=== PATIENT | female | born 2000 | race American Indian/Alaskan Native ===

== ENCOUNTER 2022-01-07 10:16 | Inpatient (IN) | payer SELFPAY ==
--- NOTE | 2022-01-07 13:16 | Ultrasound Report ---
US OB BPP wo non-stress, US OB follow up INDICATION / CLINICAL INFORMATION: vinh. Clinical Gestational Age (GA) in weeks, days: 40 weeks 2 days TECHNIQUE: Transabdominal. COMPARISON: None available. FINDINGS: NUMBER: Single PRESENTATION: cephalic PLACENTA: Fundal, left lateral placenta is free of the os. MATERNAL ADNEXA: No significant abnormality. AMNIOTIC FLUID VOLUME: normal AMNIOTIC FLUID INDEX (VINH) in cm (if measured): 10.2 BREATHING MOVEMENT = 0 GROSS BODY MOVEMENT = 2 TONE = 2 QUALITATIVE AMNIOTIC FLUID VOLUME = 2 TOTAL BIOPHYSICAL SCORE = 8/8 MEASUREMENTS: - Biparietal Diameter = 8.7 cm = 35 weeks 0 days - Head Circumference = 31.1 cm = 34 weeks 5 days - Abdominal Circumference = 34.5 cm = 38 weeks 2 days - Femur Length = 7.4 cm = 38 weeks 0 days - Estimated Weight (in grams, if calculated): 3192 - Heart Rate (beats per minute): 137 ADDITIONAL FINDINGS: None. AVERAGE ULTRASOUND AGE (AUA) in weeks, days = 36 weeks 4 days IMPRESSION: 1. Biophysical profile of 8 due to limited breathing movements. Close follow-up is suggested. 2. Single live intrauterine with ultrasound age of 36 weeks 4 days. Estimate weight o f 3192 g. 3. No other significant abnormality. Signer Name: Steven Christianson MD Signed: 01/07/2022 1:11 PM Workstation Name: [employer]
[2022-01-07] MEDS ORDERED: NalbUPHINE 10 MG/1 ML INJ IV PRN (14:20)
[2022-01-07] MEDS ORDERED: CARBOPROST TROMETHAMINE 250 MCG/1 ML INJ IM PRN (14:20)
[2022-01-07] MEDS ORDERED: ONDANSETRON 4 MG/2 ML INJ IV PRN (14:20)
[2022-01-07] MEDS ORDERED: LIDOCAINE (2%) 20 MG/1 ML VIAL 20 ML MDV INFILTRATI ONE (14:20)
[2022-01-07] MEDS ORDERED: PROMETHAZINE 25 MG TAB PO PRN (14:20)
[2022-01-07] MEDS ORDERED: TERBUTALINE 1 MG/1 ML INJ SUB-Q PRN (14:20)
[2022-01-07] MEDS ORDERED: METHYLERGONOVINE MALEATE 0.2 MG/ML VIAL IM PRN (14:20)
[2022-01-07] MEDS ORDERED: ePHEDrine SULFATE 50 MG/1 ML INJ IV PRN (14:20)
[2022-01-07] MEDS ORDERED: OXYTOCIN 10 UNIT/1 ML INJ IM PRN (14:20)
[2022-01-07] MEDS ORDERED: MINERAL OIL 30 ML ORAL LIQD PO PRN (14:20)
[2022-01-07] MEDS ORDERED: ACETAMINOPHEN 325 MG TAB PO PRN (14:20)
[2022-01-07] MEDS ORDERED: PENICILLIN G POTASSIUM 5 MIL.UNITS in SODIUM CHLORIDE 0.9% 50 ML IV ONE (14:20)
[2022-01-07] MEDS ORDERED: miSOPROStol 200 MCG TAB PR PRN (14:20)
[2022-01-07] MEDS ORDERED: LOPERAMIDE 2 MG CAP PO PRN (14:20)
[2022-01-07] MEDS ORDERED: LACTATED RINGERS 1,000 ML IV SCH (14:30)
--- NOTE | 2022-01-07 14:31 | History and Physical Report ---
History of Present Illness Date of examination: 01/07/22 Date of admission: 01/07/22 Chief complaint: LOF at 10am this morning History of present illness: at 40.2wks by LMP per pt report. Pt does not have care here. Pt admits to LOF at 10am today, denies fever or chills, admits to movement and sometimes intermittent cramping. Pt denies headache. pt states she was suppose to deliver at [facility]. pt cannot recall getting GBS done. Past History Past Medical History: no pertinent history Past Surgical History: no surgical history Family/Genetic History: none Social history: no significant social history - Obstetrical History Expected Date of Delivery: 01/05/22 Actual Gestation: 40 Week(s) 2 Day(s) : 3 Hx # Term Pregnancies: 1 Spontaneous Abortions: 1 Number of Living Children: 1 Medications and Allergies Allergies Allergy/AdvReac Type Severity Reaction Status Date / Time No Known Allergies Allergy Unverified 01/07/22 10:33 Active Meds: Active Medications Acetaminophen (Acetaminophen 325 Mg Tab) 650 mg PO Q4H PRN PRN Reason: Pain, Mild (1-3) Carboprost Tromethamine (Carboprost Tromethamine 250 Mcg/1 Ml Inj) 250 mcg IM ONCE PRN PRN Reason: Uterine Bleeding Ephedrine Sulfate (Ephedrine Sulfate 50 Mg/1 Ml Inj) 10 mg IV Q2M PRN PRN Reason: Hypotension Fentanyl (Fentanyl 100 Mcg/2 Ml Inj) 100 mcg IV Q2H PRN PRN Reason: Pain,Severe (7-10) LABOR PAIN Oxytocin/Sodium Chloride (Pitocin/Ns 30 Unit/500ml) 30 units in 500 mls @ 2 mls/hr IV TITR ALEXANDRE; Protocol Lactated Ringer's (Lactated Ringers) 1,000 mls @ 125 mls/hr IV DIRECT ALEXANDRE Oxytocin/Sodium Chloride (Pitocin/Ns 30 Unit/500ml) 30 units in 500 mls @ 40 mls/hr IV TITR ALEXANDRE; Protocol Penicillin G Potassium 5 mil. (units/ Sodium Chloride) 50 mls @ 100 mls/hr IV ONCE ONE; Protocol Stop: 01/07/22 14:49 Lidocaine (Lidocaine (2%) 20 Mg/1 Ml Vial 20 Ml Mdv) 20 ml INFILTRATI ONCE ONE Stop: 07/18/22 14:21 Loperamide HCl (Loperamide 2 Mg Cap) 2 mg PO ONCE PRN PRN Reason: give with Hemabate Methylergonovine Maleate (Methylergonovine Maleate 0.2 Mg/Ml Vial) 0.2 mg IM ONCE PRN PRN Reason: Uterine Bleeding Mineral Oil (Mineral Oil 30 Ml Oral Liqd) 30 ml PO QHS PRN PRN Reason: Constipation Misoprostol (Misoprostol 200 Mcg Tab) 800 mcg MO ONCE PRN PRN Reason: Uterine Bleeding Nalbuphine HCl (Nalbuphine 10 Mg/1 Ml Inj) 10 mg IV Q2H PRN PRN Reason: Pain, Moderate (4-6) Ondansetron HCl (Ondansetron 4 Mg/2 Ml Inj) 4 mg IV Q8H PRN PRN Reason: Nausea And Vomiting Oxytocin (Oxytocin 10 Unit/1 Ml Inj) 10 unit IM ONCE PRN PRN Reason: Uterine Bleeding Promethazine HCl (Promethazine 25 Mg Tab) 25 mg PO Q6H PRN PRN Reason: Nausea And Vomiting Terbutaline Sulfate (Terbutaline 1 Mg/1 Ml Inj) 0.25 mg SUB-Q ONCE PRN PRN Reason: Hyperstimulation/Hypertonicity Review of Systems All systems: negative (LOF) - Vital Signs Vital signs: Vital Signs Temp Pulse Resp BP Pulse Ox 97.9 F 100 H 20 105/63 98 01/07/22 10:19 01/07/22 10:19 01/07/22 10:19 01/07/22 10:19 01/07/22 10:19 Temp Pulse Resp BP Pulse Ox 97.9 F 101 H 20 129/69 97 01/07/22 10:19 01/07/22 14:22 01/07/22 10:19 01/07/22 12:35 01/07/22 14:22 - Physical Exam Breasts: Positive: deferred Cardiovascular: Regular rate Lungs: Positive: Normal air movement Abdomen: Positive: soft Genitourinary (Female): Positive: normal external genitalia Uterus: Positive: enlarged (non-tender gravid) Extremities: Positive: normal Deep Tendon Reflex Grade: Normal +2 - Obstetrical FHR: category 1 Cervical Dilatation: 4 (SSE with mec fluid seen) Cervical Effacement Percentage: 50 station: -1 Uterine Contraction Pattern: Irregular Uterine Contraction Intensity: Mild Results All other labs normal. Assessment and Plan Term , post dates with PROM seen with neg ROM plus and VINH 10cm, meconium stained fluid from cervical os, mild contractions in early labor, GBS unknown, unclear where pt has care 1. Will admit and augment labor with pitocin with meconium seen and term fundus 2. GBS prophylaxis with PCN 3. Walk in labs and try and obtain records 4. May have epidural when desired 5. Plan of care discussed with pt and shared decision making done with all risks, benefits and alternatives verbalized. Pt agrees
[2022-01-07] MEDS ORDERED: OXYTOCIN DRIP 30 UNITS/500 ML BAG IV SCH ×2 (15:00)
[2022-01-07] MEDS ORDERED: hydrALAZINE 20 MG/1 ML INJ ONE (17:09)
[2022-01-07 17:52] LABS: Hematocrit 35.6 % (30.3-42.9); Hemoglobin 11.5 gm/dl (10.1-14.3); Mean Corpuscular HGB Conc 32 % (30-34); Mean Corpuscular Volume 78 fl (79-97); Platelet Count 359 K/mm3 (140-440); Red Blood Count 4.54 M/mm3 (3.65-5.03); Red Cell Distribution Width 18.2 % (13.2-15.2)
[2022-01-07] MEDS ORDERED: hydrALAZINE 20 MG/1 ML INJ IV ONE (19:54)
[2022-01-07] MEDS: fentaNYL 100 MCG/2 ML INJ IV PRN ×2 (21:16→23:38)
[2022-01-08] MEDS ORDERED: LIDOCAINE (2%) 20 MG/1 ML VIAL 20 ML MDV INFILTRATI ONE (01:03)
[2022-01-08] MEDS ORDERED: HYDROcodone/ACETAMINOPHEN 5-325 MG TAB PO PRN (01:31)
[2022-01-08] MEDS ORDERED: BENZOCAINE/MENTHOL 20/0.5% TOP SPRAY 56 GM TP PRN (01:31)
[2022-01-08] MEDS ORDERED: ACETAMINOPHEN 325 MG TAB PO PRN (01:31)
[2022-01-08] MEDS ORDERED: WITCH HAZEL/ GLYCERIN PAD TP PRN (01:31)
[2022-01-08] MEDS ORDERED: MAGNESIUM HYDROXIDE (MOM) ORAL LIQD UDC PO PRN (01:31)
[2022-01-08] MEDS ORDERED: LANOLIN/ZINC/DIMETHICONE (LANSINOH) 7 GM TP PRN (01:31)
--- NOTE | 2022-01-08 01:38 | Procedure Note ---
OB Delivery Note - Delivery Date of Delivery: 01/08/22 Surgeon: JF ELLIS Estimated blood loss: 100cc - Vaginal Delivery presentation: vertex Delivery position: OA Intrapartum events: PROM->1hr before delivery Delivery induction: oxytocin Delivery augmentation: pitocin Delivery monitor: external FHT, external uterine Route of delivery: Indicators for instrumentation: nonreassuring FHR tracing Delivery placenta: spontaneous Delivery cord: 3 umbilical vessels Episiotomy: none Delivery laceration: 1st degree Delivery repair: vicryl Anesthesia: local Delivery comments: The patient was admitted to labor and delivery with premature rupture membranes at term. Labor was induced. The patient presented a liveborn female infant. The 's umbilical cord was clamped and cut. She was handed off to the nursery team. The placenta spontaneously extracted. There was a first-degree perineal laceration that was repaired with 3-0 Vicryl in a running fashion. The patient tolerated the procedure well. All instruments were removed from the patient's vagina. - Infant A at 1 minute: 8 at 5 minutes: 9 Infant Gender: Female
[2022-01-08] MEDS: IBUPROFEN 800 MG TAB PO SCH (02:22)
[2022-01-08 05:33] LABS: Hepatitis C Virus Antibody Non-Reactive (NonReactive)
--- NOTE | 2022-01-08 12:51 | Event Note ---
Date: 01/08/22 Just peaked in to see pt and she is doing fine. pt feels tired as expected having baby today. Firm fundus and lochia moderate. Pt denies pelvic pain. Will continue routine postpatum care. All questions encouraged and answered.
[2022-01-08] MEDS: DOCUSATE SODIUM 100 MG CAP PO SCH (17:21)
[2022-01-08] MEDS: PRENATAL VIT27-FE FUMARATE-FOLIC ACID VIT TAB PO SCH (17:21)
[2022-01-09] MEDS: DOCUSATE SODIUM 100 MG CAP PO SCH ×4 (00:12→21:31)
[2022-01-09] MEDS: IBUPROFEN 800 MG TAB PO SCH ×4 (00:12→17:32)
[2022-01-09 07:55] LABS: Hematocrit 33.6 % (30.3-42.9); Hemoglobin 10.6 gm/dl (10.1-14.3); Mean Corpuscular HGB Conc 32 % (30-34); Mean Corpuscular Volume 80 fl (79-97); Platelet Count 326 K/mm3 (140-440); Red Blood Count 4.23 M/mm3 (3.65-5.03)
[2022-01-09] MEDS: PRENATAL VIT27-FE FUMARATE-FOLIC ACID VIT TAB PO SCH (10:31)
--- NOTE | 2022-01-09 19:31 | Progress Note ---
Assessment and Plan A: PPD # 1 -stable P: Discharge home in am Discharge instructions given Subjective - Subjective Date of service: 01/09/22 Principal diagnosis: PPD # 1 - stable Patient reports: appetite normal : doing well Objective - Vital Signs Latest vital signs: Vital Signs Temp Pulse Resp BP BP Pulse Ox Pulse Ox 01/09/22 16:00 98 F 86 20 101/62 100 01/09/22 08:10 98.6 F 73 20 90/45 98 01/09/22 05:08 18 01/09/22 00:12 18 01/08/22 23:46 97.9 F 88 20 104/56 98 01/08/22 20:15 98 Intake and Output 01/09/22 01/09/22 01/09/22 06:59 14:59 22:59 Intake Total 240 320 120 Balance 240 320 120 Intake: Oral 240 320 120 Other: Total, Intake Amount 240 320 120 # Voids Void 1 1 1 - Exam Breasts: Present: deferred Cardiovascular: Present: Regular rate Lungs: Present: Clear to auscultation Abdomen: Present: soft Vulva: both: normal Uterus: Present: fundal height below umbilicus Deep Tendon Reflex Grade: Normal +2 - Labs Labs: Abnormal lab results 01/09/22 Range/Units 07:27 WBC 11.2 H (4.5-11.0) K/mm3 MCH 25 L (28-32) pg RDW 18.0 H (13.2-15.2) %
--- NOTE | 2022-01-09 19:32 | Discharge Summary ---
Providers - Providers Date of Admission: 01/07/22 10:17 Date of discharge: 01/10/22 Attending physician: GIULIANA WEINER Primary care physician: GIULIANA WEINER Hospitalization Reason for admission: active labor Delivery: Laceration: 1st degree complications: none baby: female Condition at discharge: Good Disposition: 01 HOME / SELF CARE / HOMELESS Plan - Provider Discharge Summary Activity: routine, no sex for 6 weeks, no strenuous exercise Diet: routine Instructions: routine Additional instructions: [] Smoking cessation referral if applicable(refer to patient education folder for contact #) [] Refer to [facility]'s [facility] Booklet Call your doctor immediately for: * Fever > 100.5 * Heavy vaginal bleeding ( >1 pad per hour) * Severe persistent headache * Shortness of breath * Reddened, hot, painful area to leg or breast * Drainage or odor from incision. * Keep incision clean and dry at all times and follow doctor's instructions regarding bathing/showering - Follow up plan Follow up: GIULIANA WEINER MD [Primary Care Provider] - 6 Weeks
[2022-01-10] MEDS: IBUPROFEN 800 MG TAB PO SCH ×2 (04:43→12:38)
[2022-01-10 09:36] VITALS: BP 112/62
[2022-01-10] MEDS: DOCUSATE SODIUM 100 MG CAP PO SCH (12:38)
[2022-01-10] MEDS: PRENATAL VIT27-FE FUMARATE-FOLIC ACID VIT TAB PO SCH (12:38)
== END 2022-01-10 15:06 | disposition home or self-care (01) | DRG 807 ==
LOC: LD 10:16 → TRG 10:16 → APU 10:17 → LD 10:17 → TRG 15:02 → OB 01-08 03:24
PROVIDERS: ADMIT Obstetrics & Gynecology; ATTEND Obstetrics & Gynecology
PROC: 10E0XZZ Delivery of Products of Conception, External Approach (ICD-10-PCS; principal; 2022-01-08)
PROC: 0HQ9XZZ Repair Perineum Skin, External Approach (ICD-10-PCS; 2022-01-08)
DX: O76 Abnormality in fetal heart rate and rhythm complicating labor and delivery (principal); Z37.0 Single live birth; Z3A.40 40 weeks gestation of pregnancy; Z20.822 Contact with and (suspected) exposure to COVID-19; O70.0 First degree perineal laceration during delivery; O42.02 Full-term premature rupture of membranes, onset of labor within 24 hours of rupture
CPT/HCPCS: 36415; 76816; 76819; 84112; 85014; 85018; 85027; 86592; 86706; 86762; 86803; 86850; 86900; 86901; 87806; G0378; J2540; J2590; J3010; J7120; U0003